=== PATIENT | female | born 1980 | race Hispanic/Latino ===

== ENCOUNTER 2021-04-01 09:30 | Emergency (ER) | payer SELFPAY ==
[2021-04-01 09:33] VITALS: BP 132/85
[2021-04-01] MEDS: HYDROcodone/ACETAMINOPHEN 10-325MG TAB PO ONE (09:56)
--- NOTE | 2021-04-01 10:42 | XRay Report ---
LEFT HIP 2 VIEWS LEFT FEMUR 4 VIEWS INDICATION / CLINICAL INFORMATION: Left hip pain after fall. COMPARISON: None available. FINDINGS: LEFT HIP: BONES and JOINT(S): No acute fracture or subluxation. No significant arthritis. There is unremarkable appearing internal fixation of the right hip. SOFT TISSUES: No significant abnormality. ADDITIONAL FINDINGS: None. LEFT FEMUR: BONES and JOINT(S): No acute fracture or subluxation. No significant arthritis. SOFT TISSUES: No significant abnormality. ADDITIONAL FINDINGS: None. IMPRESSION: 1. No acute findings. Signer Name: Ricky Prater MD Signed: 04/01/2021 10:37 AM Workstation Name: [id number]
--- NOTE | 2021-04-01 11:11 | Emergency Department Report ---
ED Lower Extremity HPI - General Chief Complaint: Extremity Injury, Lower Stated Complaint: FALL Time Seen by Provider: 04/01/21 09:39 Source: patient Mode of arrival: Stretcher Limitations: No Limitations - History of Present Illness Initial Comments: This is a 41-year-old female nontoxic, well nourished in appearance, no acute signs of distress presents to the ED with c/o of left hip pain x 1 day. Patient stated that she was getting out of the truck and felt sharp pains to left hip. Patient denies any direct injuries or trauma. Patient denies any numbness, tingling, fever, chills, nausea, vomiting, chest pain, shortness of breath, headache, stiff neck. Patient denies any joint swelling or joint redness. Patient denies decreased range of motion. Patient stated has decreased gait due to pain. Patient denies any allergies. MD Complaint: hip injury -: days(s) Injury: Hip: Left Place: street/outdoors Severity: mild Severity scale (0 -10): 8 Improves With: immobilization Worsens With: weight bearing, movement, palpation Associated Symptoms: able to partially bear weight. denies: snap/pop sensation, swelling, numbness, tingling, unable to bear weight - Related Data Previous Rx's Medication Instructions Recorded Last Taken Type Naproxen 500 mg PO Q12H PRN #12 tablet 04/01/21 Unknown Rx Allergies Allergy/AdvReac Type Severity Reaction Status Date / Time No Known Allergies Allergy Unverified 04/01/21 09:33 ED Review of Systems ROS: Stated complaint: FALL Other details as noted in HPI Comment: All other systems reviewed and negative Constitutional: denies: chills, fever Eyes: denies: eye pain, eye discharge, vision change ENT: denies: ear pain, throat pain Respiratory: denies: cough, shortness of breath, wheezing Cardiovascular: denies: chest pain, palpitations Endocrine: no symptoms reported Gastrointestinal: denies: abdominal pain, nausea, diarrhea Genitourinary: denies: urgency, dysuria, discharge Musculoskeletal: denies: back pain, joint swelling, arthralgia Skin: denies: rash, lesions Neurological: denies: headache, weakness, paresthesias Psychiatric: denies: anxiety, depression Hematological/Lymphatic: denies: easy bleeding, easy bruising ED Past Medical Hx - Medications Home Medications: Home Medications Medication Instructions Recorded Confirmed Last Taken Type Naproxen 500 mg PO Q12H PRN #12 tablet 04/01/21 Unknown Rx ED Physical Exam - General Limitations: No Limitations General appearance: alert, in no apparent distress - Head Head exam: Present: atraumatic, normocephalic - Eye Eye exam: Present: normal appearance - Neck Neck exam: Present: normal inspection, full ROM. Absent: lymphadenopathy - Respiratory Respiratory exam: Absent: respiratory distress - Cardiovascular Cardiovascular Exam: Present: regular rate - Extremities Exam Extremities exam: Present: normal inspection, full ROM, tenderness, normal capillary refill. Absent: pedal edema, joint swelling, calf tenderness - Expanded Lower Extremity Exam Left Hip exam: Present: normal inspection, full ROM, tenderness, external rotation, internal rotation, pelvic stability. Absent: swelling, abrasion, laceration, ecchymosis, deformity, crepidus, dislocation, erythema, shortening Upper Leg exam: Present: normal inspection, full ROM. Absent: tenderness, swelling Knee exam: Present: normal inspection, full ROM. Absent: tenderness, swelling Lower Leg exam: Present: normal inspection, full ROM. Absent: tenderness, swelling Ankle exam: Present: normal inspection, full ROM. Absent: tenderness, swelling Foot/Toe exam: Present: normal inspection, full ROM. Absent: tenderness, swelling Neuro vascular tendon exam: Present: no vascular compromise Gait: Positive: observed and limited by pain - Back Exam Back exam: Present: normal inspection, full ROM. Absent: tenderness, CVA tenderness (R), CVA tenderness (L), muscle spasm, paraspinal tenderness, vertebral tenderness, rash noted - Neurological Exam Neurological exam: Present: alert, oriented X3 - Psychiatric Psychiatric exam: Present: normal affect, normal mood - Skin Skin exam: Present: warm, dry, intact, normal color. Absent: rash ED Course Vital Signs 04/01/21 04/01/21 09:31 09:56 Temperature 96.6 F L Pulse Rate 97 H Respiratory 17 16 Rate Blood Pressure 132/85 [Left] O2 Sat by Pulse 97 Oximetry - Reevaluation(s) Reevaluation #1: 04/01/21 11:09 Patient is speaking in full sentences with no signs of distress noted. ED Lower Extremity MDM - Radiology Data [facility] [address] [place] [address] XRay Report Signed Patient: RICARDO NORIEGA#: [id number] 2 : 1980 Acct:[id number] Age/Sex: 41 / F ADM Date: 04/01/21 Loc: ED Attending Dr: Ordering Physician: REY LUCAS NP Date of Service: 04/01/21 Procedure(s): XR hip 2-3V LT Accession Number(s): [id number] cc: REY LUCAS NP Fluoro Time In Minutes: LEFT HIP 2 VIEWS LEFT FEMUR 4 VIEWS INDICATION / CLINICAL INFORMATION: Left hip pain after fall. COMPARISON: None available. FINDINGS: LEFT HIP: BONES and JOINT(S): No acute fracture or subluxation. No significant arthritis. There is unremarkable appearing internal fixation of the right hip. SOFT TISSUES: No significant abnormality. ADDITIONAL FINDINGS: None. LEFT FEMUR: BONES and JOINT(S): No acute fracture or subluxation. No significant arthritis. SOFT TISSUES: No significant abnormality. ADDITIONAL FINDINGS: None. IMPRESSION: 1. No acute findings. Signer Name: Ricky Prater MD Signed: 04/01/2021 10:37 AM Workstation Name: [id number] Transcribed By: [place] Dictated By: Ricky Prater MD Electronically Authenticated By: Ricky Prater MD Signed Date/Time: 04/01/21 1037 DD/ 1035 TD/TT: [facility] [address] [place] [address] XRay Report Signed Patient: RICARDO NORIEGA MR#: [id number] 2 : 1980 Acct:[id number] Age/Sex: 41 / F ADM Date: 04/01/21 Loc: ED Attending Dr: Ordering Physician: REY LUCAS NP Date of Service: 04/01/21 Procedure(s): XR femur 2+V LT Accession Number(s): [id number] cc: REY LUCAS NP Fluoro Time In Minutes: LEFT HIP 2 VIEWS LEFT FEMUR 4 VIEWS INDICATION / CLINICAL INFORMATION: Left hip pain after fall. COMPARISON: None available. FINDINGS: LEFT HIP: BONES and JOINT(S): No acute fracture or subluxation. No significant arthritis. There is unremarkable appearing internal fixation of the right hip. SOFT TISSUES: No significant abnormality. ADDITIONAL FINDINGS: None. LEFT FEMUR: BONES and JOINT(S): No acute fracture or subluxation. No significant arthritis. SOFT TISSUES: No significant abnormality. ADDITIONAL FINDINGS: None. IMPRESSION: 1. No acute findings. Signer Name: Ricky Prater MD Signed: 04/01/2021 10:37 AM Workstation Name: [id number] Transcribed By: MARLYN Dictated By: Ricky Prater MD Electronically Authenticated By: Ricky Prater MD Signed Date/Time: 04/01/21 1037 DD/ 1035 TD/TT: - Medical Decision Making This is a 41-year-old female that presents with left hip injury. Patient is stable and was examined by me. I referred patient to an orthopedic doctor for further evaluation for possible MRI. X-ray has been obtained and dictated by the radiologist. Patient is notified of the x-ray report with noted by the patient. Patient does have normal gait with some tenderness and no joint swelling. No ecchymosis. no joint redness or swelling. Not warm to touch. No signs of cellulites present. Patient was instructed to RICE therapy. Patient received Asher for pain which stated that symptoms improved and sibsided. Stated will have someone drive the patient home after discharge. Patient is d ischarged with Naproxen. At time of discharge, the patient does not seem toxic or ill in appearance. No acute signs of distress noted. Patient agrees to discharge treatment plan of care. No further questions noted by the patient. Critical care attestation.: If time is entered above; I have spent that time in minutes in the direct care of this critically ill patient, excluding procedure time. ED Disposition Clinical Impression: Injury of left hip Qualifiers: Encounter type: initial encounter Qualified Code(s): S79.912A - Unspecified injury of left hip, initial encounter Disposition: HOME / SELF CARE / HOMELESS Is pt being admited?: No Does the pt Need Aspirin: No Condition: Stable Instructions: RICE Therapy for Routine Care of Injuries, [id number] Additional Instructions: Follow-up with a orthopedic doctor in 3-5 days or if symptoms worsen and continue return to emergency room as soon as possible. No physical activity that extremity until cleared by orthopedic doctor Prescriptions: Naproxen 500 mg PO Q12H PRN #12 tablet PRN Reason: Pain , Severe (7-10) Referrals: PRIMARY CAREMD [Primary Care Provider] - 3-5 Days MELVA PENA MD [Staff Physician] - 3-5 Days Time of Disposition: 11:13
== END 2021-04-02 01:35 | disposition home or self-care (01) ==
LOC: ED 09:30
DX: S79.912A Unspecified injury of left hip, initial encounter (principal); X58.XXXA Exposure to other specified factors, initial encounter; Y93.89 Activity, other specified; Y92.89 Other specified places as the place of occurrence of the external cause; Y99.8 Other external cause status
CPT/HCPCS: 99283